=== PATIENT | female | born 1990 | race Caucasian/White ===

== ENCOUNTER 2018-10-02 21:59 | Emergency (ER) | payer MEDICAID, OTHER ==
[~2018-10-02] VITALS: Ht 162.6 cm; Wt 90.1 kg
[~2018-10-02 21:59] MED LIST: DOCU240C31 PO; ETHI1TAB26 PO; IBUP-1222 PO; OXYC-302 PO; SERT100T PO
[2018-10-02 22:00] VITALS: BP 151/81
== END 2018-10-02 22:31 | disposition home or self-care (01) ==
LOC: ED 22:23
DX: J98.01 Acute bronchospasm (principal); J45.909 Unspecified asthma, uncomplicated
CPT/HCPCS: 93005; 99283